=== PATIENT | female | born 1960 | race Caucasian/White ===

== ENCOUNTER 2018-02-06 16:27 | Emergency (ER) | payer OTHER ==
[2018-02-06 16:42] VITALS: O2SAT 98
[2018-02-06] MEDS ORDERED: Zosyn 3.375GM/100 Ml D5W 3.375 GM/100 ML IVPB IV STA (17:12)
[2018-02-06] MEDS ORDERED: solu-MEDROL 125 MG IV ONE (17:13)
[2018-02-06] MEDS ORDERED: Sodium Chloride 0.9% 1000 ML 1,000 ML IV SCH (17:15)
--- NOTE | 2018-02-06 17:37 | ERPHSYRPT ---
- History of Present Illness Time Seen by Provider: 02/06/18 16:45 Source: patient Patient Subjective Stated Complaint: Left Knee Pain x2 weeks, denies inury. Insect bite to left eye, eye swelling since last night. Triage Nursing Assessment: Pt presents to the ED with complaints of left knee pain, unknown injury, and left eye swelling after insect bite. Pt states swelling began last night and has continued throughout today. Denies other complaints. Denies decrease in vision. Physician History: PATIENT WITH A HISTORY OF HYPERTENSION AND TYPE 2 DIABETES COMPLAINS OF BEING STUNG BY INSECT BELOW LEFT EYELID LAST NIGHT ASSOCIATED WITH LOWER EYE SWELLING AND FACIAL SWELLING WITH ITCHING. TOOK BENADRYL EARLIER TODAY. ALSO COMPLAINS OF LEFT KNEE SWELLING FOR 2 WEEKS, WORSE UPON WEIGHT BEARING. DENIES SWELLING, BRUISING, DEFORMITY, TRAUMA OR INJURY. Timing/Duration: yesterday Location: left eye Severity: mild Apparent Injury: yes (LOWER EYE LID SWELLING DUE TO INSECT.) Associated Symptoms: other (DENIES VISUAL CHANGES) Trauma: No Welding Arc/Tanning Bed Exposure: No Allergies/Adverse Reactions: codeine Allergy (Mild, Verified 02/06/18 16:44) Nausea Home Medications: Amlodipine Besylate [Amlodipine Besylate] 5 mg PO DAILY 02/06/18 [History] Carisoprodol [Carisoprodol] 350 mg PO DAILY 02/06/18 [History] Carvedilol [Carvedilol] 12.5 mg PO DAILY 02/06/18 [History] Metformin HCl [Metformin HCl] 500 mg PO DAILY 02/06/18 [History] Omeprazole [Omeprazole] 20 mg PO DAILY 02/06/18 [History] raNITIdine HCl [Ranitidine HCl] 300 mg PO DAILY 02/06/18 [History] Hx Tetanus, Diphtheria Vaccination/Date Given: No Hx Influenza Vaccination/Date Given: No Hx Pneumococcal Vaccination/Date Given: No Immunizations Up to Date: No - Review of Systems Constitutional: No Fever, No Chills Eyes: Other (LOWER LEFT EYELID SWELLING, FACIAL SWELLING) Ears, Nose, & Throat: No Symptoms Respiratory: No Symptoms, No Cough, No Dyspnea Cardiac: No Symptoms, No Chest Pain, No Edema, No Syncope Abdominal/Gastrointestinal: No Symptoms, No Abdominal Pain, No Nausea, No Vomiting, No Diarrhea Genitourinary Symptoms: No Symptoms, No Dysuria Musculoskeletal: Joint Pain (LEFT KNEE PAIN), No Back Pain, No Neck Pain Skin: No Rash Neurological: No Dizziness, No Focal Weakness, No Sensory Changes Psychological: No Symptoms Endocrine: No Symptoms All Other Systems: Reviewed and Negative - Past Medical History Pertinent Past Medical History: Yes Neurological History: No Pertinent History ENT History: No Pertinent History Cardiac History: Hypertension Respiratory History: COPD Endocrine Medical History: Diabetes Type II Musculoskeletal History: No Pertinent History GI Medical History: No Pertinent History History: No Pertinent History Psycho-Social History: No Pertinent History Female Reproductive Disorders: No Pertinent History - Past Surgical History Past Surgical History: Yes Neuro Surgical History: No Pertinent History Cardiac: No Pertinent History Respiratory: No Pertinent History Gastrointestinal: No Pertinent History Genitourinary: No Pertinent History Musculoskeletal: Orthopedic Surgery Female Surgical History: No Pertinent History Other Surgical History: Back Surgery x3 - Social History Smoking Status: Former smoker Exposure to second hand smoke: No Drug Use: none Patient Lives Alone: No - Female History Hx Now: No - Nursing Vital Signs Nursing Vital Signs: Initial Vital Signs Temperature 98.6 F 02/06/18 16:38 Pulse Rate 83 02/06/18 16:38 Respiratory Rate 16 02/06/18 16:38 Blood Pressure 172/87 02/06/18 16:38 O2 Sat by Pulse Oximetry 98 02/06/18 16:38 Pain Scale Pain Intensity 3 - Physical Exam Vision Acuity Right Eye: 20/30 Vision Acuity Left Eye: 20/30 Eye Exam: left eye: other (LEFT LOWER EYE LID AND LEFT MAXILLARY SWELLING MINIMAL NO ERYTHRMA), bilateral eye: normal inspection, PERRL Ears, Nose, Throat Exam: normal ENT inspection Neck Exam: normal inspection Respiratory Exam: normal breath sounds Cardiovascular Exam: regular rate/rhythm Extremity Exam: normal inspection, tenderness (LEFT KNEE MEDIAL FEMORAL CONDYLE TENDERNESS, FULL RANGE OF MOTION, MINIMAL PAIN, NO JOINT LAXITY UPON VARUS/ VALGUS STRESS, NEGATIVE ANTERIOR DRAW SIGN), other (LEFT POPLITEAL PULSE 2+, PEDIS PULSE) Neurologic: alert, oriented x 3 Skin Exam: normal color SpO2 Interpretation: normal SpO2: 98 Oxygen Delivery: Room Air - Radiology Exams Left Knee X-ray Interpretation: Interpreted by me (MODERATE DEGENERATIVE ARTHRITIS) Ordered Tests: Active Orders 24 hr Category Date Time Status KNEE (3 VIEWS) Stat Exams 02/06/18 17:14 Taken BLOOD CULTURE Stat Lab 02/06/18 17:48 Received CBC W DIFF Stat Lab 02/06/18 17:40 Completed Medication Summary Generic Name Dose Route Start Last Admin Trade Name Freq PRN Reason Stop Dose Admin Sodium Chloride 1,000 mls @ 200 mls/hr 02/06/18 17:15 02/06/18 17:51 Sodium Chloride 0.9% 1000 Ml IV 03/08/18 17:14 200 mls/hr .Q5H FRANCI Administration Discontinued Medications Generic Name Dose Route Start Last Admin Trade Name Freq PRN Reason Stop Dose Admin Piperacillin Sod/Tazobactam Sod 3.375 gm in 100 mls @ 200 mls/hr 02/06/18 17: 12 02/06/18 17:52 Zosyn 3.375gm/100 Ml D5w IV 02/06/18 17:41 200 mls/hr STAT STA 200 mls/hr Administration Piperacillin Sod/Tazobactam Sod Confirm 02/06/18 17:47 Zosyn 3.375gm/100 Ml D5w Administered 02/06/18 17:48 Dose 3.375 gm in 100 mls @ ud IV .STK-MED ONE Methylprednisolone Sodium Succinate 125 mg 02/06/18 17:13 02/06/18 17:52 Solu-Medrol 125 Mg IV 02/06/18 17:14 125 mg STAT ONE Administration Methylprednisolone Sodium Succinate Confirm 02/06/18 17:46 Solu-Medrol 125 Mg Administered 02/06/18 17:47 Dose 125 mg .ROUTE .STK-MED ONE Lab/Rad Data: Laboratory Result Diagrams 02/06/18 17:40 Laboratory Results 02/06/18 Range/Units 17:40 WBC 8.0 (4.0-10.5) K/mm3 RBC 3.95 L (4.1-5.4) M/mm3 Hgb 12.2 (12.0-16.0) gm/dl Hct 38.1 (35-47) % MCV 96.5 (78-100) fl MCH 30.8 (26-32) pg MCHC 32.0 (32-36) g/dl RDW 12.6 (11.5-14.0) % Plt Count 344 (150-450) K/mm3 MPV 10.7 H (6-9.5) fl Gran % 61.6 (36.0-66.0) % Eos # (Auto) 0.22 (0-0.5) Absolute Lymphs (auto) 2.06 (1.0-4.6) Absolute Monos (auto) 0.76 (0.0-1.3) Lymphocytes % 25.8 (24.0-44.0) % Monocytes % 9.5 (0.0-12.0) % Eosinophils % 2.8 (0.00-5.0) % Basophils % 0.3 (0.0-0.4) % Absolute Granulocytes 4.91 (1.4-6.9) Basophils # 0.02 (0-0.4) - Progress Progress Note: 02/06/18 17:40 IV NORMAL SALINE 200ML/HR, AFTER 2 SETS OF BLOOD CULTURES ZOSYN 3.375GM IVPB, SOLUMEDROL 125MG IV Counseled pt/family regarding: lab results, diagnosis, need for follow-up, rad results - Departure Time of Disposition: 18:43 Departure Disposition: Home Clinical Impression: EARLY LEFT FACIAL CELLULITIS, CHRONIC LEFT KNEE PAIN Condition: Stable Critical Care Time: No Referrals: DOCTOR,NO FAMILY [Primary Care Provider] - Additional Instructions: ANTIBIOTIC AUGMENTIN 875MG TWICE DAILY FOR 10 DAYS. PREDNISONE 20MG, 2 TABLETS DAILY FOR 5 DAYS. TYLENOL OR MOTRIN NEEDED FOR YOUR KNEE PAIN. AMBULATE USING CRUTCHES NONWEIGHT BEARING LEFT LEG X 1 WEEK. CONSULT YOUR PRIMARY CARE PROVIDER TOMORROW TO SCHEDULE FOLLOWUP APPOINTMENT. Prescriptions: Amox Tr/Potass Clav. 875 mg [Augmentin 875-125 Tablet] 1 each PO BID #20 tablet Prednisone 20 mg [Deltasone 20 mg] 2 tab PO DAILY 5 Days #10 tablet
[2018-02-06] MEDS ORDERED: solu-MEDROL 125 MG ONE (17:46)
[2018-02-06] MEDS ORDERED: Sodium Chloride 0.9% 1000 ML 1,000 ML ONE (17:47)
[2018-02-06] MEDS ORDERED: Zosyn 3.375GM/100 Ml D5W 3.375 GM/100 ML IVPB IV ONE (17:47)
[2018-02-06 17:59] LABS: BASOPHIL % 0.3 % (0.0-0.4); Basophil (Absolute #) 0.02 (0-0.4); Eosinophil % 2.8 % (0.00-5.0); Eosinophil (Absolute #) 0.22 (0-0.5); Granulocyte Absolute (ANC) 4.91 (1.4-6.9); Granulocytes % 61.6 % (36.0-66.0); Hematocrit 38.1 % (35-47); Hemoglobin 12.2 gm/dl (12.0-16.0); Lymphocyte (Absolute #) 2.06 (1.0-4.6); Lymphocytes % 25.8 % (24.0-44.0); Mean Cell Volume 96.5 fl (78-100); Mean Platelet Volume 10.7 fl (6-9.5); Monocyte (Absolute #) 0.76 (0.0-1.3); Monocytes % 9.5 % (0.0-12.0); Platelet Count 344 K/mm3 (150-450); Red Blood Count 3.95 M/mm3 (4.1-5.4); Red Cell Distribution Width 12.6 % (11.5-14.0)
[2018-02-06 18:08] LABS: Mean Corpuscular Hemoglobin 30.8 pg (26-32)
[2018-02-06 18:53] VITALS: BP 151/76; PULSE 75
--- NOTE | 2018-02-07 09:36 | XRAY ---
Indication: Pain and swelling. No known injury. Comparison: None 3 views of the left knee demonstrates suprapatellar effusion and mild/moderate tricompartmental degenerative changes, greatest in medial compartment. Cluster of small well-circumscribed anterior/posterior knee calcifications either degenerative versus old injury/inflammation. No other bony, articular, or soft tissue abnormalities.
== END 2018-02-06 18:52 | disposition home or self-care (01) ==
LOC: ED 16:27
DX: H00.035 Abscess of left lower eyelid (principal); W57.XXXA Bitten or stung by nonvenomous insect and other nonvenomous arthropods, initial encounter; M25.562 Pain in left knee; M25.462 Effusion, left knee; Z79.899 Other long term (current) drug therapy
CPT/HCPCS: 36415; 73562; 85025; 87040; 96360; 96365; 96374; 99284; J2543; J2930

== ENCOUNTER 2020-08-26 19:49 | Inpatient (IN) | payer OTHER ==
[2020-08-26] MEDS ORDERED: Sodium Chloride 0.9% 1000 ML 1,000 ML ONE ×2 (19:58→20:57)
[2020-08-26] MEDS ORDERED: DECADRON 10MG INJ. ONE (20:03)
[2020-08-26] MEDS ORDERED: Sodium Chloride 0.9% 1000 ML 1,000 ML IV STA (20:04)
--- NOTE | 2020-08-26 20:04 | ERPHSYRPT ---
- History of Present Illness Time Seen by Provider: 08/26/20 20:03 Source: patient, family Exam Limitations: no limitations Physician History: pt was diagnosed with Covid in Aug and was on steroids but is now increasing in shortness of breath and was found to have room air O2 of 81% in ER tonight. she has COPD and also DM but sugars have been 150-180. has rhonchi both lower lung [place]. no reness or swelling of legs. no prior blood clots. on no blood thinners per her Hx. Timing/Duration: day(s), gradual onset, worse Cough Quality/Degree: productive cough Possible Cause: frequent episodes, chronic episodes Modifying Factors: Improves With: albuterol inhaler, coughing Associated Symptoms: cough, shortness of breath, wheezing Allergies/Adverse Reactions: cefaclor [From Ceclor] Allergy (Mild, Verified 08/26/20 20:23) Rash celecoxib [From Celebrex] Allergy (Mild, Verified 08/26/20 20:23) Rash codeine Allergy (Mild, Verified 08/26/20 20:25) Nausea Home Medications: Amlodipine Besylate 5 mg PO DAILY 02/06/18 [History] Metformin HCl 500 mg PO DAILY 02/06/18 [History] Omeprazole 20 mg PO DAILY 02/06/18 [History] carisoprodoL [Carisoprodol] 350 mg PO DAILY 02/06/18 [History] carvediloL [Carvedilol] 12.5 mg PO DAILY 02/06/18 [History] raNITIdine HCL [Ranitidine HCl] 300 mg PO DAILY 02/06/18 [History] Insulin Glargine,Hum.rec.anlog [Basaglar Kwikpen U-100] 38 units SQ HS 08/26/20 [History] Meloxicam 15 mg PO DAILY 08/26/20 [History] Oxybutynin Chloride 5 mg PO BID 08/26/20 [History] Pantoprazole 20 mg [Protonix 20MG Tablet] 20 mg PO DAILY 08/26/20 [H istory] carisoprodoL [Carisoprodol] 350 mg PO TID PRN 08/26/20 [History] Hx Tetanus, Diphtheria Vaccination/Date Given: No Hx Influenza Vaccination/Date Given: No Hx Pneumococcal Vaccination/Date Given: No - Review of Systems Constitutional: Fatigue, Malaise, No Fever, No Chills Eyes: No Symptoms Ears, Nose, & Throat: No Symptoms Respiratory: Cough, Dyspnea Cardiac: No Chest Pain, No Edema, No Syncope Abdominal/Gastrointestinal: No Abdominal Pain, No Nausea, No Vomiting, No Diarrhea Genitourinary Symptoms: No Dysuria Musculoskeletal: No Back Pain, No Neck Pain Skin: No Rash Neurological: No Dizziness, No Focal Weakness, No Sensory Changes Psychological: No Symptoms Endocrine: No Symptoms Hematologic/Lymphatic: No Symptoms Immunological/Allergic: No Symptoms All Other Systems: Reviewed and Negative - Past Medical History Pertinent Past Medical History: Yes Neurological History: No Pertinent History ENT History: No Pertinent History Cardiac History: Hypertension Respiratory History: COPD Endocrine Medical History: Diabetes Type II Musculoskeletal History: No Pertinent History GI Medical History: No Pertinent History History: No Pertinent History Psycho-Social History: No Pertinent History Female Reproductive Disorders: No Pertinent History - Past Surgical History Past Surgical History: Yes Neuro Surgical History: No Pertinent History Cardiac: No Pertinent History Respiratory: No Pertinent History Gastrointestinal: No Pertinent History Genitourinary: No Pertinent History Musculoskeletal: Orthopedic Surgery Female Surgical History: No Pertinent History Other Surgical History: Back Surgery x3 - Social History Smoking Status: Former smoker Exposure to second hand smoke: No Drug Use: none Patient Lives Alone: No - Nursing Vital Signs Nursing Vital Signs: Initial Vital Signs Temperature 99.9 F 08/26/20 19:53 Pulse Rate 83 08/26/20 19:53 Respiratory Rate 30 H 08/26/20 19:53 Blood Pressure 182/98 08/26/20 19:53 O2 Sat by Pulse Oximetry 81 L 08/26/20 19:53 Pain Scale Pain Intensity 0 - Physical Exam General Appearance: moderate distress, alert Eye Exam: PERRL/EOMI, eyes nml inspection Ears, Nose, Throat Exam: normal ENT inspection, TMs normal, pharynx normal, moist mucous membranes Neck Exam: normal inspection, non-tender, supple, full range of motion Respiratory Exam: airway intact, crackles/rales, rhonchi, No respiratory distress Cardiovascular Exam: regular rate/rhythm, normal heart sounds Gastrointestinal/Abdomen Exam: soft, No tenderness Pelvic Exam: deferred Rectal Exam: deferred Back Exam: normal inspection, No CVA tenderness, No vertebral tenderness Extremity Exam: normal inspection, normal range of motion Neurologic Exam: alert, oriented x 3, cooperative, normal mood/affect, sensation nml, No motor deficits Skin Exam: normal color, warm, dry, No rash Lymphatic Exam: No adenopathy SpO2 Interpretation: hypoxic, O2 applied SpO2: 81 O2 Delivery: Room Air Comments: 08/26/20 20:43 improved after 4 L O2 to 94% - Course Nursing assessment & vital signs reviewed: Yes EKG Interpreted by Me: Sinus Rhythm, Left [place] Deviation, Non-specific ST Changes - Radiology Exams Chest X-ray Interpretation: Reviewed by me, Infiltrates (bilateral), Pneumonia - CT Exams Chest CT Interpretation: Tele-radiologist Report, No PE, Pneumonia Ordered Tests: Active Orders 24 hr Category Date Time Status Client Success Manager STAT Care 08/26/20 20:08 Active EKG-ER Only STAT Care 08/26/20 20:04 Active IV Insertion STAT Care 08/26/20 20:04 Active IV Insertion-2nd Peripheral STAT Care 08/26/20 20:13 Active Oxygen-ED Only Nasal Cannula 4 lpm Care 08/26/20 20:04 Active Pulse Oximetry (ED) STAT Care 08/26/20 20:04 Active CHEST 2 VIEWS (PA AND LAT) Stat Exams 08/26/20 20:07 Taken CHEST WITH CONTRAST [CT] Stat Exams 08/26/20 20:48 Taken CBC W DIFF Stat Lab 08/26/20 20:00 Completed CMP Stat Lab 08/26/20 20:00 Completed D-DIMER QUANTITATIVE Stat Lab 08/26/20 20:00 Completed HCG QUALITATIVE,SERUM Stat Lab 08/26/20 20:00 Completed INFLUENZA A+B RD Stat Lab 08/26/20 20:06 Completed Lactic Acid Stat Lab 08/26/20 20:20 Completed Manual Differential NC Stat Lab 08/26/20 20:00 Completed NT PRO BNP Stat Lab 08/26/20 20:00 Completed TROPONIN Q3H Lab 08/26/20 20:00 Completed TROPONIN Q3H Lab 08/26/20 23:15 Ordered TROPONIN Q3H Lab 08/27/20 02:15 Ordered TROPONIN Q3H Lab 08/27/20 05:15 Ordered TROPONIN Q3H Lab 08/27/20 08:15 Ordered Respiratory Therapy Assessment DAILY RT 08/26/20 20:39 Active Medication Summary Generic Name Dose Route Start Last Admin Trade Name Freq PRN Reason Stop Dose Admin Sodium Chloride 1,000 mls @ 100 mls/hr 08/26/20 20:15 08/26/20 20:59 Sodium Chloride 0.9% 1000 Ml IV 09/25/20 20:14 100 mls/hr .Q10H FRANCI Administration Discontinued Medications Generic Name Dose Route Start Last Admin Trade Name Freq PRN Reason Stop Dose Admin Albuterol Sulfate 4 puff 08/26/20 20:12 08/26/20 20:30 Ventolin Common Canister IH 08/26/20 20:13 4 puff STAT ONE Administration Dexamethasone Sodium Phosphate Confirm 08/26/20 20:03 Decadron 10mg Inj. Administered 08/26/20 20:04 Dose 10 mg .ROUTE .STK-MED ONE Dexamethasone Sodium Phosphate 10 mg 08/26/20 20:11 08/26/20 20:19 Decadron 10mg Inj. IV 08/26/20 20:12 10 mg STAT ONE Administration Sodium Chloride Confirm 08/26/20 19:58 Sodium Chloride 0.9% 1000 Ml Administered 08/26/20 19:59 Dose 1,000 mls @ ud .ROUTE .STK-MED ONE Sodium Chloride 1,000 mls @ 999 mls/hr 08/26/20 20:04 08/26/20 21:21 Sodium Chloride 0.9% 1000 Ml IV 08/26/20 21:04 Infused .Q1H1M STA Infusion Azithromycin 500 mg in 250 mls @ 250 mls/hr 08/26/20 21:00 08/26/20 21:08 Zithromax 500 Mg/ 250 Ml Nacl Premix IV 08/26/20 21:59 250 mls/hr STAT STA 250 mls/hr Administration Azithromycin Confirm 08/26/20 21:04 Zithromax 500 Mg/ 250 Ml Nacl Premix Administered 08/26/20 21:05 Dose 500 mg in 250 mls @ ud IV .STK-MED ONE Lab/Rad Data: Laboratory Result Diagrams 08/26/20 20:00 08/26/20 20:00 Laboratory Results 08/26/20 08/26/20 08/26/20 Range/Units 20:20 20:06 20:00 WBC (4.0-10.5) K/mm3 RBC (4.1-5.4) M/mm3 Hgb (12.0-16.0) gm/dl Hct (35-47) % MCV (78-100) fl MCH (26-32) pg MCHC (32-36) g/dl RDW (11.5-14.0) % Plt Count (150-450) K/mm3 MPV (7.5-11.0) fl Segmented Neutrophils (36.0-66.0) % Lymphocytes (Manual) (24-44) % Monocytes (Manual) (0.0-12.0) % Eosinophils (Manual) (0.00-3.0) % Platelet Estimate (NORMAL) RBC Morphology D-Dimer (215-500) ng/mL Sodium (137-145) mmol/L Potassium (3.5-5.1) mmol/L Chloride (98-107) mmol/L Carbon Dioxide (22-30) mmol/L Anion Gap (5-15) MEQ/L BUN (7-17) mg/dL Creatinine (0.52-1.04) mg/dL Estimated GFR ML/MIN Glucose (74-106) mg/dL Lactic Acid 1.3 (0.4-2.0) Calcium (8.4-10.2) mg/dL Total Bilirubin (0.2-1.3) mg/dL AST (14-36) U/L ALT (0-35) U/L Alkaline Phosphatase (38-126) U/L Troponin I (0.000-0.034) ng/mL NT-Pro-B Natriuret Pep (0-900) pg/mL Serum Total Protein (6.3-8.2) g/dL Albumin (3.5-5.0) g/dL Serum , Qual NEGATIVE (Negative) Influenza Type A Ag NEGATIVE (NEGATIVE) Influenza Type B Ag NEGATIVE (NEGATIVE) 08/26/20 08/26/20 08/26/20 Range/Units 20:00 20:00 20:00 WBC (4.0-10.5) K/mm3 RBC (4.1-5.4) M/mm3 Hgb (12.0-16.0) gm/dl Hct (35-47) % MCV (78-100) fl MCH (26-32) pg MCHC (32-36) g/dl RDW (11.5-14.0) % Plt Count (150-450) K/mm3 MPV (7.5-11.0) fl Segmented Neutrophils (36.0-66.0) % Lymphocytes (Manual) (24-44) % Monocytes (Manual) (0.0-12.0) % Eosinophils (Manual) (0.00-3.0) % Platelet Estimate (NORMAL) RBC Morphology D-Dimer 1085 H* (215-500) ng/mL Sodium 141 (137-145) mmol/L Potassium 3.5 (3.5-5.1) mmol/L Chloride 107 (98-107) mmol/L Carbon Dioxide 28 (22-30) mmol/L Anion Gap 9.7 (5-15) MEQ/L BUN 15 (7-17) mg/dL Creatinine 0.53 (0.52-1.04) mg/dL Estimated GFR > 60.0 ML/MIN Glucose 113 H (74-106) mg/dL Lactic Acid (0.4-2.0) Calcium 7.9 L (8.4-10.2) mg/dL Total Bilirubin 0.50 (0.2-1.3) mg/dL AST 50 H (14-36) U/L ALT 38 H (0-35) U/L Alkaline Phosphatase 192 H (38-126) U/L Troponin I < 0.012 (0.000-0.034) ng/mL NT-Pro-B Natriuret Pep 356 (0-900) pg/mL Serum Total Protein 7.8 (6.3-8.2) g/dL Albumin 3.6 (3.5-5.0) g/dL Serum , Qual (Negative) Influenza Type A Ag (NEGATIVE) Influenza Type B Ag (NEGATIVE) 08/26/20 Range/Units 20:00 WBC 7.0 (4.0-10.5) K/mm3 RBC 3.74 L (4.1-5.4) M/mm3 Hgb 12.2 (12.0-16.0) gm/dl Hct 37.4 (35-47) % MCV 100.0 (78-100) fl MCH 32.6 H (26-32) pg MCHC 32.6 (32-36) g/dl RDW 13.4 (11.5-14.0) % Plt Count 240 (150-450) K/mm3 MPV 10.6 (7.5-11.0) fl Segmented Neutrophils 83 H (36.0-66.0) % Lymphocytes (Manual) 13 L (24-44) % Monocytes (Manual) 3 (0.0-12.0) % Eosinophils (Manual) 1 (0.00-3.0) % Platelet Estimate NORMAL (NORMAL) RBC Morphology NORMAL D-Dimer (215-500) ng/mL Sodium (137-145) mmol/L Potassium (3.5-5.1) mmol/L Chloride (98-107) mmol/L Carbon Dioxide (22-30) mmol/L Anion Gap (5-15) MEQ/L BUN (7-17) mg/dL Creatinine (0.52-1.04) mg/dL Estimated GFR ML/MIN Glucose (74-106) mg/dL Lactic Acid (0.4-2.0) Calcium (8.4-10.2) mg/dL Total Bilirubin (0.2-1.3) mg/dL AST (14-36) U/L ALT (0-35) U/L Alkaline Phosphatase (38-126) U/L Troponin I (0.000-0.034) ng/mL NT-Pro-B Natriuret Pep (0-900) pg/mL Serum Total Protein (6.3-8.2) g/dL Albumin (3.5-5.0) g/dL Serum , Qual (Negative) Influenza Type A Ag (NEGATIVE) Influenza Type B Ag (NEGATIVE) - Progress Progress: improved, re-examined Air Movement: good Progress Note: 08/26/20 20:50 risk/benefit of CT PE discussed with pt and she wishes to go ahead - advised to hold metformin 48 hrs. 08/26/20 23:33 Discussed with Pt and Dr. Matta and will place pt on decadron and admit for COvid pneumonia- she is doing well on 4 l NC at 97% sat. Blood Culture(s) Obtained: No Antibiotics given: Yes Discussed with Dr.: Other (Dr. Matta) Will see patient in: hospital (full admit) Counseled pt/family regarding: lab results, diagnosis, rad results - Departure Departure Disposition: In-patient Admission Clinical Impression: COVID-19, Bilateral pneumonia, Diabetes Condition: Good Critical Care Time: No Referrals: DOCTOR,NO FAMILY [Primary Care Provider] -
[2020-08-26] MEDS ORDERED: DECADRON 10MG INJ. IV ONE (20:11)
[2020-08-26] MEDS ORDERED: VENTOLIN COMMON CANISTER IH ONE (20:12)
[2020-08-26] MEDS ORDERED: Sodium Chloride 0.9% 1000 ML 1,000 ML IV SCH (20:15)
[2020-08-26 20:20] LABS: Hematocrit 37.4 % (35-47); Hemoglobin 12.2 gm/dl (12.0-16.0); Mean Corpuscular Hemoglobin 32.6 pg (26-32); Mean Corpuscular Hgb Concent. 32.6 g/dl (32-36); Mean Platelet Volume 10.6 fl (7.5-11.0); Platelet Count 240 K/mm3 (150-450); Red Blood Count 3.74 M/mm3 (4.1-5.4); Red Cell Distribution Width 13.4 % (11.5-14.0)
[2020-08-26 20:34] LABS: ALBUMIN 3.6 g/dL (3.5-5.0); ALKALINE PHOSPHATASE 192 U/L (38-126); ANION GAP 9.7 MEQ/L (5-15); BLOOD UREA NITROGEN 15 mg/dL (7-17); CHLORIDE 107 mmol/L (98-107); Calcium 7.9 mg/dL (8.4-10.2); Carbon Dioxide 28 mmol/L (22-30); Creatinine 1 0.53 mg/dL (0.52-1.04); EST GLOMERULAR FILTRATION RATE > 60.0 ML/MIN; Glucose 113 mg/dL (74-106); NT PRO BNP 356 pg/mL (0-900); Potassium 3.5 mmol/L (3.5-5.1); SGOT/AST 50 U/L (14-36); SGPT/ALT 38 U/L (0-35); SODIUM 141 mmol/L (137-145); Total Protein 7.8 g/dL (6.3-8.2)
[2020-08-26] MEDS ORDERED: Zithromax 500 MG/ 250 ML NaCl Premix 500 MG/250 ML IVPB IV STA (21:00)
[2020-08-26] MEDS ORDERED: Zithromax 500 MG/ 250 ML NaCl Premix 500 MG/250 ML IVPB IV ONE (21:04)
[2020-08-26 21:09] LABS: INFLUENZA A NEGATIVE (NEGATIVE); INFLUENZA B NEGATIVE (NEGATIVE)
[2020-08-26 21:51] LABS: Eosinophil 1 % (0.00-3.0); Lymphocytes 13 % (24-44); Monocyte 3 % (0.0-12.0); Neutrophils 83 % (36.0-66.0); Platelet Estimate NORMAL (NORMAL); Total Cells Counted 100
[2020-08-27] MEDS ORDERED: TYLENOL 325 MG PO PRN (01:09)
[2020-08-27] MEDS ORDERED: VENTOLIN COMMON CANISTER IH PRN (01:09)
[2020-08-27] MEDS ORDERED: MILK OF MAGNESIA 30 ML PO PRN (01:09)
[2020-08-27] MEDS ORDERED: Colace 100 MG PO PRN (01:09)
[2020-08-27] MEDS ORDERED: Zofran 4 MG/2 ML VIAL IV PRN (01:09)
[2020-08-27] MEDS ORDERED: Sodium Chloride 0.9% 250 ML 250 ML IV ONE (02:08)
[2020-08-27] MEDS ORDERED: REMDESIVIR IV ONE (02:08)
[2020-08-27] MEDS: REMDESIVIR 200 MG in Sodium Chloride 0.9% 500 ML 250 ML IV SCH ×2 (02:32→03:42)
[2020-08-27 06:10] LABS: Hematocrit 32.9 % (35-47); Hemoglobin 10.8 gm/dl (12.0-16.0); Mean Cell Volume 100.6 fl (78-100); Mean Corpuscular Hgb Concent. 32.8 g/dl (32-36); Mean Platelet Volume 10.8 fl (7.5-11.0); Platelet Count 224 K/mm3 (150-450); Red Blood Count 3.27 M/mm3 (4.1-5.4); Red Cell Distribution Width 13.2 % (11.5-14.0); White Blood Count 6.4 K/mm3 (4.0-10.5)
[2020-08-27 06:42] LABS: Lymphocytes 3 % (24-44); Neutrophils 97 % (36.0-66.0); Total Cells Counted 100
[2020-08-27 06:43] LABS: ANISOCYTOSIS 1+; Platelet Estimate NORMAL (NORMAL); Poikilocytosis 1+; Polychromasia 1+
[2020-08-27 06:45] LABS: ALBUMIN 3.2 g/dL (3.5-5.0); ALKALINE PHOSPHATASE 171 U/L (38-126); ANION GAP 11.7 MEQ/L (5-15); BLOOD UREA NITROGEN 12 mg/dL (7-17); CHLORIDE 106 mmol/L (98-107); Calcium 7.8 mg/dL (8.4-10.2); Carbon Dioxide 24 mmol/L (22-30); Creatinine 1 0.46 mg/dL (0.52-1.04); EST GLOMERULAR FILTRATION RATE > 60.0 ML/MIN; Glucose 182 mg/dL (74-106); Potassium 3.7 mmol/L (3.5-5.1); SGOT/AST 37 U/L (14-36); SGPT/ALT 30 U/L (0-35); SODIUM 139 mmol/L (137-145); Total Protein 6.7 g/dL (6.3-8.2)
--- NOTE | 2020-08-27 07:45 | XRAY ---
Indication: Short of breath. Positive Covid 19. Comparison: None Portable chest demonstrates diffuse bilateral patchy airspace disease without consolidation/large effusion. Heart is not enlarged. Bony thorax intact.
--- NOTE | 2020-08-27 07:49 | XRAY ---
Indication: Short of breath. Positive Covid 19. Elevated d-dimer. Multiple contiguous axial images obtained through the chest using 100 cc Isovue 370 contrast and PE protocol. Comparison: None There is good opacification of the pulmonary arteries to include the lobar and segmental branches. No pulmonary embolus. Heart is enlarged. Aorta is mildly atherosclerotic without aneurysm/dissection. Small mediastinal and left hilar calcified nodes. No pathologic mediastinal/hilar lymphadenopathy. Small hiatal hernia. Lungs demonstrates diffuse bilateral peripheral airspace opacities appearing more consolidating posteriorly. No effusion. Incidental left lower lobe calcified granuloma. Bony thorax intact. Limited upper abdomen demonstrates 1.7 cm splenic and 2.9 cm left renal cysts. Impression: 1. Negative pulmonary embolus. 2. Diffuse bilateral peripheral airspace disease. Commonly reported imaging features of Covid 19 pneumonia are present. Other processes such as influenza pneumonia, as can be seen with drug toxicity and connective tissue disease can cause a similar imaging pattern. 3. Incidental small hiatal hernia, splenic/left renal cysts, and old granulomatous disease. Comment: Preliminary interpretation was made by [facility]. No critical discrepancy.
[2020-08-27] MEDS: Pepcid 20 MG VIAL IV SCH ×2 (09:43→21:47)
[2020-08-27] MEDS: ENOXAPARIN SODIUM SQ SCH (09:43)
[2020-08-27] MEDS: Decadron 4 MG INJ IV SCH ×2 (09:44→21:47)
[2020-08-27] MEDS ORDERED: SUMATRIPTAN SUCCINATE 25 MG PO PRN (09:47)
[2020-08-27] MEDS ORDERED: Protonix 20MG Tablet PO SCH (10:00)
[2020-08-27] MEDS ORDERED: DECADRON 10MG INJ. IV SCH (10:00)
[2020-08-27] MEDS ORDERED: NON-FORMULARY ITEM (Ranitidine Hcl [Ranitidine Hcl] 300 MG) PO SCH (10:00)
[2020-08-27] MEDS ORDERED: Glucophage 500 MG PO SCH (10:00)
[2020-08-27] MEDS ORDERED: NON-FORMULARY ITEM (Meloxicam [Meloxicam] 15 MG) PO SCH (10:00)
[2020-08-27] MEDS ORDERED: PATIENT OWN MEDICATION PO PRN (10:10)
[2020-08-27] MEDS: Klor Con 10 MEQ PO SCH (10:20)
[2020-08-27] MEDS: MELOXICAM PO SCH (10:20)
[2020-08-27] MEDS: Januvia 50 MG PO SCH (10:21)
[2020-08-27] MEDS: Protonix 40MG Tablet PO SCH (10:22)
[2020-08-27] MEDS: COREG 12.5 MG PO SCH (10:22)
[2020-08-27] MEDS: Ditropan 5 MG PO SCH ×2 (10:22→21:47)
[2020-08-27] MEDS: NORVASC 5 MG PO SCH (10:22)
[2020-08-27] MEDS: SOMA 350 MG PO PRN ×2 (10:38→21:47)
[2020-08-27] MEDS: Ativan 1 MG PO PRN ×2 (10:39→21:47)
--- NOTE | 2020-08-27 13:16 | HP ---
CHIEF COMPLAINT: Chest achiness and tightness, shortness of breath, a little bit of nausea. Family members all have COVID-19. She has tested positive for COVID-19 6 or 7 days ago and she is more short of breath the last day. HISTORY OF PRESENT ILLNESS: She is a 59 year-old WF who is a very good historian, pleasant, asking to know what is going on. She is afraid she will have to be intubated because when she came in she got placed on 5 liters to get her O2 up which is stable now at 92 at 4 liters. She states she has no lung disease. 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 States she may have caught it there, but also she had grandchildren and her have caught it from work and school. Her d-dimer was elevated. A CT scan showed nothing pathological. EKG was normal. CURRENT MEDICATIONS: Albuterol by nebulizer, Norvasc 5 q d, Lipitor 20 q d, Insulin bid, Tessalon 100 q 8 PRN, she monitors blood sugar, soma 350 one tid PRN for back spasms, chlorthalidone 25 q d for hypertension, dexamethasone recently started 4 mg for COVID-19 as an outpatient, gabapentin 100 tid for I assume neuropathy. Her insulin is Glargine 33 units HS. Mobic 15 once a day, metformin 1000 bid being held due to having CT scan with contrast, Prilosec 20 q d, oxybutynin 5 mg bid, KCl 10 q d, prednisone just recently, as dexamethasone, 10 mg 6 tablets, Imitrex 25 PRN, vitamin D. ALLERGIES: CECLOR, CELEBREX, DAYPRO, AND OXYCODONE. REVIEW OF SYSTEMS: HEENT: No problems hearing or seeing. CHEST: Short of breath, increasingly so. Was a former smoker, but quit 5 or 6 years ago and she states she has been diagnosed as having chronic obstructive pulmonary disease. She has a pulse oximetry at home. She is feeling worse. Pulse oximetry was in the low 80s this morning when she came in. she reports fever at home, a little bit of headache, chest feels achy and she aches all over. She cannot take her soma which she does for body ache and pain, back pain, because she is afraid it would slow her respirations. MEDICAL PROBLEMS: Hypertension, migraine, seizures in the past, temporomandibular joint syndrome, chronic anxiety secondary to her daughter being diagnosed with lung cancer at a very young age, it looks like 18, she is and they elected to have the child. Both still alive however. Her daughter has the disease and is being treated in a maintenance program. She has not traveled anywhere. She had some back surgery X 3 years ago, colonoscopies, biopsy right wrist, tonsillectomy, upper gastrointestinal endoscopy. PHYSICAL EXAMINATION: Patient is a quiet, pleasant, well-kept, intelligent lady. BP 150/80, pulse 70, temperature 99, respirations are about 20, height 5' 6", weight 170. HEENT: Pupils equal and reactive to light. NECK: Supple without adenopathy. CHEST: Clear at this point. CVS: No murmurs or gallops. ABDOMEN: No tenderness. No masses. IMPRESSION: 1. PATIENT WAS DIAGNOSED WITH COVID-19 ON 08/24/2020, ACTUALLY SEVERAL DAYS BEFORE. SHE WAS IN [facility] FOR EVALUATION ON THE . Her chest x-ray shows COVID-19 pneumonia with some bilateral lower infiltrates. Her WBC is 5.48. Creatinine was 1.2. Calcium 4.0. I can't find a d-dimer on her, but I believe the Emergency Room doctor told me it was elevated markedly last night. 2. CHRONIC BACK PAIN POST 3 SURGERIES. 3. SOME MILD CHRONIC OBSTRUCTIVE PULMONARY DISEASE. 4. HISTORY OF SMOKING, QUIT A LONG TIME AGO. PLAN: Patient will start on Remdesivir, Decadron, O2, some Ativan PRN for severe anxiety due to the situation at home and just being sick. 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 ADDENDUM: Blood sugar 182 last night, creatinine 0.46. A1C is 6.76. Influenza tests were negative. D-dimer is 1081. Prognosis good.
[2020-08-27] MEDS: Singulair 10 MG PO SCH (21:47)
[2020-08-27] MEDS: Lantus Insulin SQ SCH (21:47)
[2020-08-27] MEDS: REMDESIVIR 100 MG in Sodium Chloride 0.9% 100 ML IVPB 100 ML IV SCH (21:47)
[2020-08-27] MEDS ORDERED: INSULIN GLARGINE HUM REC ANLOG 38 UNIT SQ SCH (22:00)
[2020-08-28 06:44] LABS: INR 1.32 (0.8-3.0)
[2020-08-28 06:55] LABS: ALBUMIN 3.6 g/dL (3.5-5.0); ALKALINE PHOSPHATASE 164 U/L (38-126); ANION GAP 10.1 MEQ/L (5-15); BLOOD UREA NITROGEN 18 mg/dL (7-17); CHLORIDE 106 mmol/L (98-107); Calcium 8.4 mg/dL (8.4-10.2); Carbon Dioxide 29 mmol/L (22-30); Creatinine 1 0.52 mg/dL (0.52-1.04); EST GLOMERULAR FILTRATION RATE > 60.0 ML/MIN; Glucose 134 mg/dL (74-106); Potassium 3.9 mmol/L (3.5-5.1); SGOT/AST 38 U/L (14-36); SGPT/ALT 31 U/L (0-35); SODIUM 141 mmol/L (137-145); Total Protein 7.9 g/dL (6.3-8.2)
[2020-08-28] MEDS: ENOXAPARIN SODIUM SQ SCH (09:01)
[2020-08-28] MEDS: Decadron 4 MG INJ IV SCH ×2 (09:01→21:25)
[2020-08-28] MEDS: Klor Con 10 MEQ PO SCH (09:02)
[2020-08-28] MEDS: NORVASC 5 MG PO SCH (09:02)
[2020-08-28] MEDS: MELOXICAM PO SCH (09:02)
[2020-08-28] MEDS: Ditropan 5 MG PO SCH ×2 (09:03→21:25)
[2020-08-28] MEDS: COREG 12.5 MG PO SCH (09:03)
[2020-08-28] MEDS: Januvia 50 MG PO SCH (09:07)
[2020-08-28] MEDS: Pepcid 20 MG VIAL IV SCH ×2 (09:08→21:25)
[2020-08-28] MEDS: Protonix 40MG Tablet PO SCH (09:08)
[2020-08-28] MEDS: SOMA 350 MG PO PRN ×2 (09:49→21:25)
[2020-08-28] MEDS: HUMULIN R SQ PRN (12:09)
[2020-08-28] MEDS: Ativan 1 MG PO PRN (21:24)
[2020-08-28] MEDS: Lantus Insulin SQ SCH (21:25)
[2020-08-28] MEDS: REMDESIVIR 100 MG in Sodium Chloride 0.9% 100 ML IVPB 100 ML IV SCH (21:25)
[2020-08-28] MEDS: Singulair 10 MG PO SCH (21:26)
[2020-08-29] MEDS: Ativan 1 MG PO PRN (06:49)
[2020-08-29] MEDS: SOMA 350 MG PO PRN ×2 (06:49→22:03)
[2020-08-29 06:58] LABS: INR 1.36 (0.8-3.0); PROTIME 15.4 SECONDS (9.95-12.35)
[2020-08-29 07:08] LABS: ALBUMIN 3.2 g/dL (3.5-5.0); ALKALINE PHOSPHATASE 140 U/L (38-126); ANION GAP 8.6 MEQ/L (5-15); BLOOD UREA NITROGEN 16 mg/dL (7-17); CHLORIDE 107 mmol/L (98-107); Calcium 8.1 mg/dL (8.4-10.2); Carbon Dioxide 27 mmol/L (22-30); Creatinine 1 0.44 mg/dL (0.52-1.04); EST GLOMERULAR FILTRATION RATE > 60.0 ML/MIN; Glucose 140 mg/dL (74-106); Potassium 4.1 mmol/L (3.5-5.1); SGOT/AST 26 U/L (14-36); SGPT/ALT 23 U/L (0-35); SODIUM 138 mmol/L (137-145)
[2020-08-29] MEDS: Glucophage 500 MG PO SCH ×2 (08:46→16:48)
[2020-08-29] MEDS: COREG 12.5 MG PO SCH (09:54)
[2020-08-29] MEDS: Januvia 50 MG PO SCH (09:55)
[2020-08-29] MEDS: ENOXAPARIN SODIUM SQ SCH (09:55)
[2020-08-29] MEDS: Decadron 4 MG INJ IV SCH ×2 (09:55→22:03)
[2020-08-29] MEDS: Ditropan 5 MG PO SCH ×2 (09:55→22:03)
[2020-08-29] MEDS: Klor Con 10 MEQ PO SCH (09:55)
[2020-08-29] MEDS: Protonix 40MG Tablet PO SCH (09:56)
[2020-08-29] MEDS: Pepcid 20 MG VIAL IV SCH ×2 (09:56→22:03)
[2020-08-29] MEDS: MELOXICAM PO SCH (09:56)
[2020-08-29] MEDS: NORVASC 5 MG PO SCH (09:56)
[2020-08-29] MEDS ORDERED: Ativan 1 MG PO PRN (11:52)
[2020-08-29] MEDS: REMDESIVIR 100 MG in Sodium Chloride 0.9% 100 ML IVPB 100 ML IV SCH (22:03)
[2020-08-29] MEDS: Singulair 10 MG PO SCH (22:03)
[2020-08-29] MEDS: Lantus Insulin SQ SCH (22:04)
[2020-08-30 05:31] LABS: INR 1.38 (0.8-3.0); PROTIME 15.7 SECONDS (9.95-12.35)
[2020-08-30 05:38] LABS: ALBUMIN 3.3 g/dL (3.5-5.0); ALKALINE PHOSPHATASE 140 U/L (38-126); ANION GAP 11.6 MEQ/L (5-15); BLOOD UREA NITROGEN 18 mg/dL (7-17); CHLORIDE 105 mmol/L (98-107); Calcium 8.2 mg/dL (8.4-10.2); Carbon Dioxide 23 mmol/L (22-30); EST GLOMERULAR FILTRATION RATE > 60.0 ML/MIN; Glucose 193 mg/dL (74-106); Potassium 3.9 mmol/L (3.5-5.1); SGOT/AST 25 U/L (14-36); SGPT/ALT 23 U/L (0-35); SODIUM 136 mmol/L (137-145); Total Protein 7.1 g/dL (6.3-8.2)
[2020-08-30] MEDS: HUMULIN R SQ PRN (07:15)
[2020-08-30] MEDS: Glucophage 500 MG PO SCH (08:12)
[2020-08-30] MEDS: MELOXICAM PO SCH (11:01)
[2020-08-30] MEDS: Protonix 40MG Tablet PO SCH (11:01)
[2020-08-30] MEDS: Januvia 50 MG PO SCH (11:01)
[2020-08-30] MEDS: NORVASC 5 MG PO SCH (11:01)
[2020-08-30] MEDS: COREG 12.5 MG PO SCH (11:01)
[2020-08-30] MEDS: Klor Con 10 MEQ PO SCH (11:01)
[2020-08-30] MEDS: Ditropan 5 MG PO SCH (11:01)
[2020-08-30] MEDS: ENOXAPARIN SODIUM SQ SCH (11:01)
[2020-08-30] MEDS: Decadron 4 MG INJ IV SCH (11:02)
[2020-08-30] MEDS: Pepcid 20 MG VIAL IV SCH (11:02)
[2020-08-30 12:05] VITALS: BP 127/60; PULSE 77; O2SAT 95
== END 2020-08-30 13:45 | disposition home or self-care (01) | DRG 177 ==
LOC: ED 19:49 → MED SURG 08-27 01:07
PROVIDERS: ADMIT Family Medicine; ATTEND Family Medicine
DX: U07.1 COVID-19 (principal); J12.89 Other viral pneumonia; J44.9 Chronic obstructive pulmonary disease, unspecified; E11.9 Type 2 diabetes mellitus without complications; Z79.899 Other long term (current) drug therapy; Z79.4 Long term (current) use of insulin; I10 Essential (primary) hypertension; M54.9 Dorsalgia, unspecified; Z87.891 Personal history of nicotine dependence
CPT/HCPCS: 36000; 36415; 71046; 71260; 80053; 81025; 82947; 83036; 83605; 83880; 84484; 85025; 85379; 85610; 87400; 93005; 93041; 94640; 94760; 94762; 96360; 96361; 96365; 96374; 99285; J0456; J1100; J1650; J1815; A9270-GY

== ENCOUNTER 2021-08-23 21:30 | Emergency (ER) | payer OTHER ==
[2021-08-23] MEDS ORDERED: BENADRYL 50 MG/ML ONE (21:55)
[2021-08-23] MEDS ORDERED: Pepcid 20 MG VIAL IV ONE (21:55)
[2021-08-23] MEDS ORDERED: Sterile H2O 10 ml IJ ONE (21:55)
[2021-08-23] MEDS ORDERED: solu-MEDROL ONE (21:55)
--- NOTE | 2021-08-23 21:59 | ERPHSYRPT ---
- History of Present Illness Time Seen by Provider: 08/23/21 21:45 Source: patient Exam Limitations: no limitations Physician History: This is a 60-year-old diabetic white female with history of hypertension and gastroesophageal reflux disease who has had hives and rashes in the past that come on spontaneously and rapidly especially in the cold weather. She said in the last week there is been days where she has had mild rash and itchiness. It responded to Benadryl. However, today, especially this afternoon, she noticed large welts and hives. They did not improve or resolve with Benadryl. The last dose of Benadryl she took was at 11 AM. Patient did not experience wheezing but noticed increased coughing. She denies chest pain. She denies nausea vomiting and diarrhea. She states that she pretty much gets these hives and rashes every year when the weather becomes cold. There are no new exposures. Timing/Duration: today Quality: itchy Severity: moderate Location: torso, hands Possible Causes: no cause identified Associated Symptoms: hives, rash Allergies/Adverse Reactions: cefaclor [From Ceclor] Allergy (Mild, Verified 08/23/21 21:51) Rash celecoxib [From Celebrex] Allergy (Mild, Verified 08/23/21 21:51) Rash codeine Allergy (Mild, Verified 08/23/21 21:51) Nausea Home Medications: Amlodipine Besylate 5 mg PO DAILY 02/06/18 [History] Metformin HCl 1,000 mg PO BIDWM 02/06/18 [History] Omeprazole 20 mg PO DAILY 02/06/18 [History] carvediloL [Carvedilol] 12.5 mg PO DAILY 02/06/18 [History] raNITIdine HCL [Ranitidine HCl] 300 mg PO DAILY 02/06/18 [History] Insulin Glargine,Hum.rec.anlog [Basaglar Kwikpen U-100] 38 units SQ HS 08/26/20 [History] Meloxicam 15 mg PO DAILY 08/26/20 [History] Oxybutynin Chloride 5 mg PO BID 08/26/20 [History] Pantoprazole 20 mg [Protonix 20MG Tablet] 20 mg PO DAILY 08/26/20 [History] carisoprodoL [Carisoprodol] 350 mg PO TID PRN 08/26/20 [History] Montelukast Sodium 10 mg [Singulair 10 MG] 10 mg PO QPM 08/27/20 [History] Potassium Chloride 10 Meq Tab* [Klor Con 10 MEQ] 10 meq PO DAILY 08/27/20 [History] Sitagliptin Phosphate 50 MG [Januvia 50 MG] 100 mg PO DAILY 08/27/20 [History] Sumatriptan Succinate 25 mg [Imitrex 25 MG] 25 mg PO DAILY PRN PRN MDD 50mg 08/27/20 [History] Hx Tetanus, Diphtheria Vaccination/Date Given: No Hx Influenza Vaccination/Date Given: No Hx Pneumococcal Vaccination/Date Given: No Travel Risk - International Travel Have you traveled outside of the country in past 3 weeks: No - Coronavirus Screening Are you exhibiting any of the following symptoms?: No - Review of Systems Constitutional: No Symptoms Eyes: No Symptoms Ears, Nose, & Throat: No Symptoms Respiratory: Cough Cardiac: No Symptoms Abdominal/Gastrointestinal: No Symptoms Genitourinary Symptoms: No Symptoms Musculoskeletal: No Symptoms Skin: Rash (Generalized hives on her torso and bilateral hands and upper extremities) Neurological: No Symptoms Psychological: No Symptoms Endocrine: No Symptoms Hematologic/Lymphatic: No Symptoms Immunological/Allergic: No Symptoms All Other Systems: Reviewed and Negative - Past Medical History Pertinent Past Medical History: Yes Neurological History: No Pertinent History ENT History: No Pertinent History Cardiac History: Hypertension Respiratory History: COPD, Pneumonia Endocrine Medical History: Diabetes Type II Musculoskeletal History: No Pertinent History GI Medical History: No Pertinent History History: No Pertinent History Psycho-Social History: No Pertinent History Female Reproductive Disorders: No Pertinent History - Past Surgical History Past Surgical History: Yes Neuro Surgical History: No Pertinent History Cardiac: No Pertinent History Respiratory: No Pertinent History Gastrointestinal: No Pertinent History Genitourinary: No Pertinent History Musculoskeletal: Orthopedic Surgery Female Surgical History: No Pertinent History Other Surgical History: Back Surgery x3 - Social History Smoking Status: Former smoker Exposure to second hand smoke: No Drug Use: none Patient Lives Alone: No - Nursing Vital Signs Nursing Vital Signs: Initial Vital Signs Temperature 97.6 F 08/23/21 21:31 Pulse Rate 87 08/23/21 21:31 Respiratory Rate 18 08/23/21 21:31 Blood Pressure 190/86 08/23/21 21:31 O2 Sat by Pulse Oximetry 97 08/23/21 21:31 Pain Scale Pain Intensity 0 - Physical Exam General Appearance: no apparent distress, alert, anxiety Eye Exam: PERRL/EOMI, eyes nml inspection Ears, Nose, Throat Exam: normal ENT inspection, moist mucous membranes Neck Exam: normal inspection, non-tender, supple, full range of motion Respiratory Exam: normal breath sounds, lungs clear, airway intact, No chest tenderness, No respiratory distress Cardiovascular Exam: regular rate/rhythm, normal heart sounds, normal peripheral pulses Gastrointestinal/Abdomen Exam: soft, normal bowel sounds, No tenderness Rectal Exam: not done Back Exam: normal inspection, normal range of motion, No CVA tenderness, No vertebral tenderness Extremity Exam: normal inspection, normal range of motion, pelvis stable Neurologic Exam: alert, oriented x 3, cooperative, physical therapy manager II-XII nml as tested, normal mood/affect, nml cerebellar function, nml station & gait, sensation nml Skin Exam: rash (Hives and welts to neck and to anterior and posterior torso. Fine rash bilateral upper extremities.) Lymphatic Exam: No adenopathy SpO2 Interpretation: normal SpO2: 97 O2 Delivery: Room Air - Course Nursing assessment & vital signs reviewed: Yes Ordered Tests: Active Orders 24 hr Category Date Time Status IV Insertion STAT Care 08/23/21 21:50 Active Medication Summary Discontinued Medications Generic Name Dose Route Start Last Admin Trade Name Domq PRN Reason Stop Dose Admin Methylprednisolone Sodium 0 mg 08/23/21 21:50 Succinate 125 mg/ Sterile IV 08/23/21 21:51 Water 2 ml STAT ONE Diphenhydramine HCl 50 mg 08/23/21 21:50 Diphenhydramine Hcl 50 Mg/Ml Vial IV 08/23/21 21:51 STAT ONE Famotidine 40 mg 08/23/21 21:50 Famotidine 20 Mg/1 Vial IV 08/23/21 21:51 STAT ONE - Progress Progress: improved Counseled pt/family regarding: diagnosis, need for follow-up - Departure Departure Disposition: Home Clinical Impression: Hives, Hives due to cold exposure Condition: Stable Critical Care Time: No Referrals: DOCTOR,NO FAMILY [Primary Care Provider] - Follow up/PCP as directed Additional Instructions: Keep skin moist with unscented lotion twice a day. Continue taking Benadryl 3 times a day for the next 5 days. Take your prescription medicine as prescribed. Stop your ranitidine/Zantac medication. May restart it once you complete the Pepcid prescription Prescriptions: Prednisone 10 mg [Deltasone 10 mg] 10 mg PO TID #12 tablet Famotidine 20 mg [Pepcid 20 MG] 20 mg PO DAILY #10 tablet
[2021-08-23] MEDS: BENADRYL 50 MG/ML IV ONE (22:12)
[2021-08-23] MEDS: Pepcid 20 MG VIAL IV ONE (22:15)
[2021-08-23] MEDS: solu-MEDROL 125 MG, Sterile H2O 10 ml 2 ML IV ONE ×2 (22:21)
[2021-08-23 23:13] VITALS: BP 141/81; PULSE 80; O2SAT 99
== END 2021-08-23 22:53 | disposition home or self-care (01) ==
LOC: ED 21:30
DX: L50.2 Urticaria due to cold and heat (principal); E11.8 Type 2 diabetes mellitus with unspecified complications; Z79.4 Long term (current) use of insulin; Z79.84 Long term (current) use of oral hypoglycemic drugs; I10 Essential (primary) hypertension
CPT/HCPCS: 36000; 96374; 96375; 99284; J1200; J2930